=== PATIENT | male | born 1985 | race Caucasian/White ===

== ENCOUNTER 2025-01-16 18:30 | Emergency (ER) | payer OTHER ==
--- OUTSIDE RECORDS SUMMARY | 2025-01-16 18:31 | XMS REPORT | Continuity of Care Document ---
Author Name Unknown Address [address] [place] [address] [facility]connect Address [address] [place] [address] Care Team Providers Care Poultry Cleaner Name Role Phone JOS TENA Attending Clinician Unavailab le Encounters Start Date/Time End Date/Time Encounter Type Admission Type Attending Clinicians Care Facility Care Department Encounter ID Source 2021-09-18 10:01:52 Outpatient JOMAR HADLEY [id number] 2024-12-04 13:24:00 2024-12-04 14:16:00 Emergency ER JOS TENA [facility] [id number] [facility]
[2025-01-16] MEDS ORDERED: ONDANSETRON 4 MG/2 ML VIAL ONE (18:40)
[2025-01-16] MEDS ORDERED: MORPHINE 4 MG/ML SYR ONE (18:40)
[2025-01-16] MEDS ORDERED: BUPIVACAINE 0.5% PF 10 ML VIAL ONE (18:40)
[2025-01-16] MEDS ORDERED: LIDOCAINE 1% 20 ML MDV ONE (18:40)
[2025-01-16] MEDS ORDERED: NA CHLORIDE 0.9% 100 ML ONE (18:41)
[2025-01-16] MEDS ORDERED: TDAP (DIPHTH,PERTUSS(ACELL),TET VAC) 0.5 ML VIAL IMVAC ONE (18:41)
[2025-01-16] MEDS ORDERED: CEFAZOLIN SODIUM 2 GM/VIAL ONE (18:41)
[2025-01-16] MEDS ORDERED: HYDROMORPHONE HCL 1 MG/ML INJ ONE (18:43)
--- NOTE | 2025-01-16 18:57 | EDPHYS ---
Physician Documentation [facility] Name: Patrice Mauro Age: 39 yrs Sex: Male : 1985 Arrival Date: 01/16/2025 Time: 18:30 Bed 7 Private MD: ED Physician Gabriel Holland HPI: 01/16 18:48 This 39 yrs old Male presents to ER via EMS with complaints of Finger Injury. [place] 18:48 Trauma demographics: County: The injury occurred in [place]. Mechanism of injury: SAW. [place] Associated injuries: The patient sustained dorsal aspect of middle phalanx of left middle finger, dorsal aspect of proximal phalanx of left middle finger, palmar aspect of distal phalanx of left middle finger, palmar aspect of middle phalanx of left middle finger and palmar aspect of proximal phalanx of left middle finger, decreased range of motion, laceration, obvious fracture, painful injury, swelling. The patient has not experienced similar symptoms in the past. Historical: - Allergies: 18:42 Morphine; iw - Home Meds: 18:36 None [Active]; iw - PMHx: 18:36 None; iw - PSHx: 18:36 None; iw - Immunization history:: Adult Immunizations Last tetanus immunization: up to date. - Infectious Disease History:: Denies. - Social history:: Smoking status: Patient denies any tobacco usage or history of. ROS: 18:49 Constitutional: Negative for fever, chills, and weight loss, Eyes: Negative for injury, miladis pain, redness, and discharge, ENT: Negative for injury, pain, and discharge, Neck: Negative for injury, pain, and swelling, Cardiovascular: Negative for chest pain, palpitations, and edema, Respiratory: Negative for shortness of breath, cough, wheezing, and pleuritic chest pain, Abdomen/GI: Negative for abdominal pain, nausea, vomiting, diarrhea, and constipation, Back: Negative for injury and pain, : Negative for injury, bleeding, discharge, and swelling, Skin: Negative for injury, rash, and discoloration, Neuro: Negative for headache, weakness, numbness, tingling, and seizure, Psych: Negative for depression, anxiety, suicide ideation, homicidal ideation, and hallucinations, Allergy/Immunology: Negative for hives, rash, and allergies, Endocrine: Negative for neck swelling, polydipsia, polyuria, polyphagia, and marked weight changes, Hematologic/Lymphatic: Negative for swollen nodes, abnormal bleeding, and unusual bruising, 18:49 MS/extremity: Positive for decreased range of motion, pain, tenderness, of the dorsal aspect of middle phalanx of left middle finger, palmar aspect of distal phalanx of left middle finger, palmar aspect of middle phalanx of left middle finger and palmar aspect of proximal phalanx of left middle finger, Exam: 18:49 Constitutional: This is a well developed, well nourished patient who is awake, alert, miladis and in no acute distress. Head/Face: Normocephalic, atraumatic. Eyes: Pupils equal round and reactive to light, extra-ocular motions intact. Lids and lashes normal. Conjunctiva and sclera are non-icteric and not injected. Cornea within normal limits. Periorbital areas with no swelling, redness, or edema. ENT: Nares patent. No nasal discharge, no septal abnormalities noted. Tympanic membranes are normal and external auditory canals are clear. Oropharynx with no redness, swelling, or masses, exudates, or evidence of obstruction, uvula midline. Mucous membranes moist. Neck: Trachea midline, no thyromegaly or masses palpated, and no cervical lymphadenopathy. Supple, full range of motion without nuchal rigidity, or vertebral point tenderness. No Meningismus. Chest/axilla: Normal chest wall appearance and motion. Nontender with no deformity. No lesions are appreciated. Cardiovascular: Regular rate and rhythm with a normal S1 and S2. No gallops, murmurs, or rubs. Normal PMI, no JVD. No pulse deficits. Respiratory: Lungs have equal breath sounds bilaterally, clear to auscultation and percussion. No rales, rhonchi or wheezes noted. No increased work of breathing, no retractions or nasal flaring. Abdomen/GI: Soft, non-tender, with normal bowel sounds. No distension or tympany. No guarding or rebound. No evidence of tenderness throughout. Back: No spinal tenderness. No costovertebral tenderness. Full range of motion. Neuro: Awake and alert, GCS 15, oriented to person, place, time, and situation. Cranial nerves II-XII grossly intact. Motor strength 5/5 in all extremities. Sensory grossly intact. Cerebellar exam normal. Normal gait. Psych: Awake, alert, with orientation to person, place and time. Behavior, mood, and affect are within normal limits. 18:49 Skin: Appearance: normal except for affected area, injury, laceration(s), the wound is approximately 5 cm(s), with a depth of .25 cm(s), of the palmar aspect of distal phalanx of left middle finger, palmar aspect of middle phalanx of left middle finger and palmar aspect of proximal phalanx of left middle finger, Vital Signs: 18:32 BP 128 / 82; Pulse 47; Resp 16; Temp 97.5; Pulse Ox 95% on R/A; Weight 74.84 kg; Height iw 6 ft. 1 in. ; Pain 10/10; 18:58 BP 118 / 83; Pulse 45; Resp 16; Pulse Ox 99% on R/A; iw 20:31 BP 101 / 65; Pulse 48; Resp 18; Pulse Ox 100% ; cp4 18:32 Body Mass Index 21.77 (74.84 kg, 185.42 cm) iw 18:32 Pain Scale: Adult iw MDM: 18:36 Medical Screening Exam initiated 01/16 18:47 Order name: CBC with Diff; Complete Time: 19:45 [place] 01/16 18:47 Order name: Comprehensive Metabolic Panel; Complete Time: 19:45 [place] 01/16 18:47 Order name: Hand Left 3 View XRAY 01/16 18:48 Order name: Dressing - Wound; Complete Time: 20:11 [place] 01/16 18:48 Order name: Gloves, Sterile; Complete Time: 20:12 [place] 01/16 18:48 Order name: Setup Suture Tray; Complete Time: 20:12 [place] 01/16 18:48 Order name: Wound dressing; Complete Time: 20:12 [place] 01/16 18:48 Order name: NPO; Complete Time: 18:50 [place] Administered Medications: 18:45 Drug: HYDROmorphone IVP 1 mg IVP once {Note: Administered by JUDIT Valdez..} Route: IVP; cp4 Site: right antecubital; 20:34 Follow up: Response: No adverse reaction; Pain is decreased cp4 18:49 Drug: Boostrix Tdap IM 0.5 ml IM once; as a single dose Route: IM; Site: right deltoid; iw 19:41 Follow up: Response: No adverse reaction cp4 18:50 Drug: NS 0.9% IV 1000 ml IV at 1000 ml once; to be given as a bolus over 60 minutes iw Route: IV; Rate: 1000 ml; Site: right antecubital; 20:35 Follow up: Response: No adverse reaction; IV Status: Completed infusion cp4 18:55 Drug: ceFAZolin IVPB 2 grams IVPB once over 30 mins; (mix in 100 mL NS) Route: IVPB; iw Infused Over: 30 mins; Site: right antecubital; 20:34 Follow up: Response: No adverse reaction; IV Status: Completed infusion cp4 20:11 Drug: Lidocaine Infiltration (1 %) 5 ml 5 ml Infiltration once; to bedside {Note: cp4 Administered by provider.} Volume: 5 ml; Route: Infiltration; 20:11 Drug: Bupivacaine Infiltration (0.5 %) 5 ml 10 ml Infiltration once {Note: Administered cp4 by provider.} Volume: 10 ml; Route: Infiltration; Disposition Summary: 01/16/25 18:56 Transfer Ordered Notes: Transfer Location: [facility] miladis Reason: Higher level of care miladis Condition: Fair miladis Problem: new miladis Symptoms: have improved miladis Accepting Physician: VIVIANA MART(01/16/25 20:34) cp4 Diagnosis - Displaced fracture of distal phalanx of left middle finger - OPEN FRACTURE miladis - Laceration without foreign body of left hand, initial encounter - LEFT MIDDLE FINGERcha Forms: - Medication Reconciliation Form miladis - SBAR form miladis Signatures: Dispatcher [employer] Gabriel Coronado MD MD cha Williams, Irene, RN RN Adela Greene RN RN Cassy Arana cp4 Corrections: (The following items were deleted from the chart) 18:43 18:36 Allergies: No Known Allergies; [facility] 18:56 18:56 FRACTURE miladis miladis 20:34 18:56 [facility] miladis cp4
--- NOTE | 2025-01-16 18:57 | ER ---
Nurse's Notes [facility] Name: Patrice Mauro Age: 39 yrs Sex: Male : 1985 Arrival Date: 01/16/2025 Time: 18:30 Bed 7 Private MD: Diagnosis: Displaced fracture of distal phalanx of left middle finger-OPEN FRACTURE;Laceration without foreign body of left hand, initial encounter-LEFT MIDDLE FINGER Presentation: 01/16 18:32 Chief complaint: EMS states: skill saw to left middle finger, large laceration noted to iw finger, bony deformity noted. Coronavirus screen: At this time, the client does not indicate any symptoms associated with coronavirus-19. Ebola Screen: No symptoms or risks identified at this time. Initial Sepsis Screen: Does the patient meet any 2 criteria? No. Patient's initial sepsis screen is negative. Does the patient have a suspected source of infection? No. Patient's initial sepsis screen is negative. Risk Assessment: Do you want to hurt yourself or someone else? Patient reports no desire to harm self or others. Onset of symptoms was January 16, 2025. 18:32 Method Of Arrival: EMS: [facility] iw 18:32 Acuity: DICK 3 iw Historical: - Allergies: 18:42 Morphine; iw - Home Meds: 18:36 None [Active]; iw - PMHx: 18:36 None; iw - PSHx: 18:36 None; iw - Immunization history:: Adult Immunizations Last tetanus immunization: up to date. - Infectious Disease History:: Denies. - Social history:: Smoking status: Patient denies any tobacco usage or history of. Screenin:57 [facility] ED Fall Risk Assessment (Adult) History of falling in the last 3 months, iw including since admission No falls in past 3 months (0 pts) Confusion or Disorientation No (0 pts) Intoxicated or Sedated No (0 pts) Impaired Gait No (0 pts) Mobility Assist Device Used No (0 pt) Altered Elimination No (0 pt) Score/Fall Risk Level 0 - 2 = Low Risk Oriented to surroundings, Maintained a safe environment. Abuse screen: Denies threats or abuse. Nutritional screening: No deficits noted. Tuberculosis screening: No symptoms or risk factors identified. Assessment: 18:56 General: Appears uncomfortable, Behavior is calm, cooperative. Pain: Complains of pain iw in left hand. Neuro: Level of Consciousness is awake, alert, obeys commands, Oriented to person, place, time, situation, Moves all extremities. Cardiovascular: Patient's skin is warm and dry. Respiratory: Airway is patent Respiratory effort is even, unlabored, Respiratory pattern is regular, symmetrical. Derm: Skin is healthy with good turgor. Musculoskeletal: Bony deformity noted of dorsal aspect of middle phalanx of left middle finger and dorsal aspect of proximal phalanx of left middle finger. Injury Description: Laceration sustained to palmar aspect of proximal phalanx of left middle finger and palmar aspect of middle phalanx of left middle finger and palmar aspect of distal phalanx of left middle finger and dorsal aspect of proximal phalanx of left middle finger and dorsal aspect of middle phalanx of left middle finger is full thickness, jagged, 2.6 to 7.5 cm long, not bleeding, was sustained 30-60 minutes ago. a small amount of bleeding noted at this time. 19:20 Reassessment: Patient and/or family updated on plan of care and expected duration. Pain br2 level reassessed. Patient is alert, oriented x 3, equal unlabored respirations, skin warm/dry/pink. General: Appears comfortable, Behavior is calm, cooperative, Reports. Pain: Complains of pain in palmar aspect of distal phalanx of left middle finger, palmar aspect of middle phalanx of left middle finger and palmar aspect of proximal phalanx of left middle finger Pain. Derm: wrapped with 4x4 saturated with iodine, pending transfer. 20:17 Reassessment: CALLED PT'S [facility] AND NOTIFIED HER WHERE PT IS GOING [place] [id number] ER. SHE VERBALIZED UNDERSTANDING [phone]. 20:19 Reassessment:. br2 Vital Signs: 18:32 BP 128 / 82; Pulse 47; Resp 16; Temp 97.5; Pulse Ox 95% on R/A; Weight 74.84 kg; Height iw 6 ft. 1 in. ; Pain 10/10; 18:58 BP 118 / 83; Pulse 45; Resp 16; Pulse Ox 99% on R/A; iw 20:31 BP 101 / 65; Pulse 48; Resp 18; Pulse Ox 100% ; cp4 18:32 Body Mass Index 21.77 (74.84 kg, 185.42 cm) iw 18:32 Pain Scale: Adult iw ED Course: 18:32 Patient arrived in ED. iw 18:36 Triage completed. iw 18:36 Gabriel Holland MD is Attending Physician. miladis 18:36 Arm band placed on. iw 18:49 Courtney Garza RN is Primary Nurse. iw 18:50 Dr. Holland initiated transfer with [facility] \T\ [facility]. [facility] 18:57 Initial lab(s) drawn, by id, sent to lab. Maintain EMS IV. Dressing intact. Good blood iw return noted. Site clean \T\ dry. Gauge \T\ site: 18 RAC. Flushed with 10 mL NS. 19:02 pt was accepted by [facility] \T\ 1901. Pt will go to the ER. Admin approval given by [facility] Belkys Antoine \T\ 190. Number for nurse to nurse report [phone]. [facility] to transfer pt once nurse to nurse is complete. 19:24 Hand Left 3 View XRAY In Process Unspecified. EDMS 20:32 Bed in low position. Call light in reach. Side rails up X2. Provided Education on: cp4 transfer. 20:32 No provider procedures requiring assistance completed. Patient transferred, IV remains cp4 in place. Administered Medications: 18:45 Drug: HYDROmorphone IVP 1 mg IVP once {Note: Administered by JUDIT Valdez..} Route: IVP; cp4 Site: right antecubital; 20:34 Follow up: Response: No adverse reaction; Pain is decreased cp4 18:49 Drug: Boostrix Tdap IM 0.5 ml IM once; as a single dose Route: IM; Site: right deltoid; iw 19:41 Follow up: Response: No adverse reaction cp4 18:50 Drug: NS 0.9% IV 1000 ml IV at 1000 ml once; to be given as a bolus over 60 minutes iw Route: IV; Rate: 1000 ml; Site: right antecubital; 20:35 Follow up: Response: No adverse reaction; IV Status: Completed infusion cp4 18:55 Drug: ceFAZolin IVPB 2 grams IVPB once over 30 mins; (mix in 100 mL NS) Route: IVPB; iw Infused Over: 30 mins; Site: right antecubital; 20:34 Follow up: Response: No adverse reaction; IV Status: Completed infusion cp4 20:11 Drug: Lidocaine Infiltration (1 %) 5 ml 5 ml Infiltration once; to bedside {Note: cp4 Administered by provider.} Volume: 5 ml; Route: Infiltration; 20:11 Drug: Bupivacaine Infiltration (0.5 %) 5 ml 10 ml Infiltration once {Note: Administered cp4 by provider.} Volume: 10 ml; Route: Infiltration; Medication: 20:32 VIS not applicable for this client. cp4 Outcome: 18:56 ER care complete, transfer ordered by MD. redding 20:32 Transferred by ground EMS to [facility], Transfer form completed. X-rays sent cp4 w/ patient. 20:32 Condition: stable 20:32 Instructed on the need for transfer, 20:34 Patient left the ED. cp4 Signatures: Dispatcher [employer] EDMS Gabriel Holland MD MD cha Williams, Irene, RN Cassy Ruff cp4 Maribell Huerta [facility] Christine Hoover RN RN br2 Corrections: (The following items were deleted from the chart) 18:36 18:32 Resp 16bpm; Pulse Ox 95% RA; Temp 97.5F; 74.84 kg; Height 6 ft. 1 in.; BMI: 21.7; Pain 09/03, Adult; iw 18:43 18:36 Allergies: No Known Allergies; iw 20:19 20:17 Reassessment: CALLED PT'S [facility] AND NOTIFIED HER WHERE PT IS GOING [address] SHE VERBALIZED UNDERSTANDING [facility]
[2025-01-16 19:01] LABS: Absolute Eosinophils 0.2 K/uL (0-0.5); Absolute Lymphocytes (CBC) 1.6 K/uL (0.7-4.9); Absolute Monocytes 0.5 K/uL (0.1-1.3); Absolute Neutrophil 6.7 K/uL (1.8-8.0); Basophils % 0.5 % (0-1.3); Eosinophils % 1.9 % (0-4.4); Hematocrit 40.9 % (39.6-49.0); Hemoglobin 13.7 g/dL (13.6-17.9); Lymphocytes % 17.6 % (15.3-44.8); MCH 31.9 pg (27.0-35.0); MCHC 33.4 g/dL (32.0-36.0); MCV 95.5 fL (80-100); MPV 8.4 fL (7.6-11.3); Monocytes % 5.4 % (3.3-12.3); Neutrophils % 74.6 % (41.7-73.7); Nucleated Red Blood Cells % 0.1 % (0-0); Platelets 164 thou/uL (152-406); RBC Red Blood Cell Count 4.28 M/uL (4.33-5.43); Red Cell Distribution Width 12.7 % (12.1-15.2)
[2025-01-16 19:17] LABS: Albumin 3.7 g/dL (3.4-5.0); Albumin/Globulin Ratio 1.2 (1.1-1.8); Anion Gap 7.9 mEq/L (5.0-15.0); Bilirubin Total 1.4 mg/dL (0.2-1.0); Potassium 3.9 mEq/L (3.5-5.1); Protein, Total 6.7 g/dL (6.4-8.2)
--- NOTE | 2025-01-16 19:49 | RAD REPORT ---
EXAM: XR Hand Left 3 View HISTORY: [facility] Bed Name: 7 COMPARISON: None TECHNIQUE: 3 radiographic views of the LEFT hand submitted. FINDINGS: Comminuted fractures involving the proximal aspect of the third digit middle phalanx and he ad of the proximal phalanx, with posterior displacement of the head by approximately 2 mm. Overlying soft tissue swelling and irregularity, with gauze and debris, limiting evaluation of fine b xander and soft tissue detail. Joint alignment is otherwise maintained. No other focal suspicious osseous lesions. IMPRESSION: Comminuted fractures of the third digit middle and proximal phalanges with overlying soft tissue swel ling and irregularity compatible with open fractures.
[2025-01-16 21:03] VITALS: TEMP 97.5
[2025-01-16 21:06] VITALS: BP 101/65; O2SAT 100
== END 2025-01-16 20:34 | disposition short-term general hospital (02) ==
LOC: ER 18:30
DX: S62.633B Displaced fracture of distal phalanx of left middle finger, initial encounter for open fracture (principal)
CPT/HCPCS: 96365; 85025; 36415; 80053; 73130; 96375; 96372; 99285; 96366; J2003; J1171; J2405